=== PATIENT | male | born 1975 | race Caucasian/White ===

== ENCOUNTER 2025-02-17 09:48 | Emergency (ER) | payer OTHER ==
[~2025-02-17] VITALS: Ht 175.3 cm; Wt 85.0 kg
[2025-02-17 09:53] VITALS: O2SAT 99
[2025-02-17] MEDS: SODIUM CHLORIDE 0.9% 1,000 ML IV ONE (10:28)
[2025-02-17] MEDS: FAMOTIDINE 20MG/2ML VIAL IV ONE (10:28)
[2025-02-17] MEDS: VISCOUS LIDOCAINE 2% 15 ML UDC PO ONE (10:28)
[2025-02-17] MEDS: MAGNESIUM/ALUMINUM HYDROXIDE/SIMETHICONE 30ML UDC PO ONE (10:28)
[2025-02-17 11:14] LABS: BASOPHILS % 0.6 % (0.0-2.0); CHLORIDE 105 mEq/L (98-107); EOSINOPHILS % 2.6 % (0.0-5.0); HEMATOCRIT. 44.6 % (42.0-52.0); HEMOGLOBIN. 14.6 g/dL (14.0-18.0); LYMPHOCYTES % 35.7 % (20.0-50.0); MEAN CORPUSCULAR HEMOGLOBIN 27.4 pg (28.0-32.0); MEAN CORPUSCULAR HGB CONC 32.7 g/dL (31.0-37.0); MEAN CORPUSCULAR VOLUME 83.8 fL (80.0-94.0); MEAN PLATELET VOLUME 8.8 fl (7.4-10.4); MONOCYTES % 7.2 % (2.0-8.0); NEUTROPHILS % 53.9 % (40.0-76.0); PLATELET 291 x1000/uL (130-400); POTASSIUM 3.7 mEq/L (3.5-5.1); RED BLOOD CELL COUNT 5.32 mill/uL (4.7-6.1); RED CELL DISTRIBUTION WIDTH 15.1 % (11.6-14.6); SODIUM 140 mEq/L (136-145); WHITE BLOOD COUNT 8.1 x1000/uL (4.5-11.0)
[2025-02-17 11:15] LABS: CARBON DIOXIDE 20 mEq/L (21-32)
[2025-02-17 11:16] LABS: CALCIUM 8.8 mg/dL (8.7-10.4)
[2025-02-17 11:20] LABS: CREATININE 0.5 mg/dL (0.6-1.3); GLUCOSE 130 mg/dL (70-105); UREA NITROGEN BLOOD 13 mg/dL (9-23)
[2025-02-17 11:30] LABS: ETHANOL BLOOD 297 mg/dL (<10)
[2025-02-17 12:04] LABS: TROPONIN I HIGH SENSITIVITY < 4 ng/L (3.0-53)
[2025-02-17 15:08] LABS: TROPONIN I HIGH SENSITIVITY < 4 ng/L (3.0-53)
[2025-02-17 15:45] VITALS: BP 136/69; PULSE 98; RESP 18; TEMP 36.7; O2SAT 99
== END 2025-02-17 15:55 | disposition home or self-care (01) ==
LOC: ER 10:22 → CANBEDREQ 12:29 → ER 15:55
DX: R07.89 Other chest pain (principal); F10.129 Alcohol abuse with intoxication, unspecified; K29.20 Alcoholic gastritis without bleeding; E11.9 Type 2 diabetes mellitus without complications; E78.00 Pure hypercholesterolemia, unspecified; I10 Essential (primary) hypertension; Y90.9 Presence of alcohol in blood, level not specified
CPT/HCPCS: 80048; 80320; 82962; 83880; 85025; 84484; 36415; 71045; 93005; 96361; 96374; 99285; J3490; J7030; G0480